=== PATIENT | male | born 1960 | race African-American/Black ===

== ENCOUNTER 2019-12-10 12:57 | Emergency (ER) | payer OTHER, MEDICAID ==
[~2019-12-10] VITALS: Ht 165.1 cm; Wt 81.8 kg
[2019-12-10 13:45] VITALS: BP 147/81
--- NOTE | 2019-12-10 14:18 | RAD ---
Right knee 3 views INDICATION: Right leg pain just: FINDINGS: Anatomic alignment. No acute fracture. There is exuberant sclerosis in the anterior tibia with mild cortical thickening. Moderately advanced patellofemoral compartment degenerative changes are also noted. Soft tissues are unremarkable. IMPRESSION: Patellofemoral compartment degenerative changes in the right knee and sclerosis in the right proximal tibia, possibly reflecting a healing response from pathology in the more distal tibia. If clinically warranted, further imaging by dedicated tibia and fibula x-rays could be pursued. Electronically signed by: Meredith Lane MD (12/10/2019 2:15 PM) [facility]
[2019-12-10] MEDS ORDERED: NAPR-695 PO (14:51)
--- NOTE | 2019-12-10 14:51 | PHYS DOC ---
Past Medical History Past Medical History: No Pertinent History Past Surgical History: No Surgical History Smoking Status: Never Smoker Alcohol Use: None Adult General Chief Complaint Chief Complaint: LOWER EXT PAIN [facility] HPI Patient is a 59 year old AA male, accompanied by his mother, who presents to the emergency department with complaints of right knee pain. Mother states that the patient complained of right knee pain since awakening this morning. She de nies any injury prior to the complaints of knee pain but states that the patient later fell because the pain. Mother states that she gave patient some Tylenol for relief of the pain at home. Patient currently denies any pain. All other ROS is neg unless otherwise noted in HPI. Review of Systems Review of Systems See Above Allergies Allergies Allergies Coded Allergies Type Severity Reaction Last Updated Verified No Known Drug Allergies 12/10/19 No Physical Exam Physical Exam See Above Constitutional: Well developed, well nourished, no acute distress, non-toxic appearance. [] HENT: Normocephalic, atraumatic, bilateral external ears normal, nose normal. [] Eyes: PERRLA, EOMI, conjunctiva normal, no discharge. [] Neck: Normal range of motion, no stridor. [] Cardiovascular:Heart rate regular rhythm Lungs & Thorax: Respirations even and unlabored, no retractions, no respiratory distress Skin: Warm, dry, no erythema, no rash. [] Extremities: No tenderness to palpation of R posterior thigh, or R tibia-fibula, no cyanosis, no clubbing, ROM intact, R anterior knee TTP, no erythema, no edema, no obvious deformity.] Neurologic: Alert and oriented X 3, no focal deficits noted. [] Psychologic: Affect normal, judgement normal, mood normal. [] Current Patient Data Vital Signs Vital Signs Date Time Temp Pulse Resp B/P (MAP) Pulse Ox O2 Delivery O2 Flow Rate FiO2 12/10/19 13:45 98.6 77 18 147/81 (103) 99 Room Air 98.6 EKG EKG [] Radiology/Procedures Radiology/Procedures PROCEDURE: KNEE RIGHT 3V Right knee 3 views INDICATION: Right leg pain just: FINDINGS: Anatomic alignment. No acute fracture. There is exuberant sclerosis in the anterior tibia with mild cortical thickening. Moderately advanced patellofemoral compartment degenerative changes are also noted. Soft tissues are unremarkable. IMPRESSION: Patellofemoral compartment degenerative changes in the right knee and sclerosis in the right proximal tibia, possibly reflecting a healing response from pathology in the more distal tibia. If clinically warranted, further imaging by dedicated tibia and fibula x-rays could be pursued.[] Course & Med Decision Making Course & Med Decision Making Pertinent Labs and Imaging studies reviewed. (See chart for details) [] Dragon Disclaimer Dragon Disclaimer This electronic medical record was generated, in whole or in part, using a voice recognition dictation system. Departure Departure Impression: Primary Impression: Right anterior knee pain Disposition: HOME, SELF-CARE Condition: STABLE Referrals: EVANGELINA VALENTINO MD (PCP) Patient Instructions: Knee Pain, [id number] Additional Instructions: Fill prescription(s) and use as directed. Recommend application of ice, elevation, and rest of affected extremity. Follow up with your primary care doctor or Dr. Lucio if symptoms persist. Return to the ER if your symptoms worsen. Scripts Naproxen (NAPROXEN) 375 Mg Tablet 1 TAB PO BID for 10 Days, #20 TAB 0 Refills Prov: MAINOR ORTEZ APRN 12/10/19 MAINOR ORTEZ APRN Dec 10, 2019 14:51
== END 2019-12-10 15:03 | disposition home or self-care (01) ==
LOC: ER 12:57
DX: M25.561 Pain in right knee (principal)
CPT/HCPCS: 73562; 99284